=== PATIENT | female | born 1975 | race Caucasian/White ===

== ENCOUNTER 2016-10-18 21:51 | Inpatient (IN) | payer MEDICARE, OTHER ==
--- NOTE | ~2016-10-18 | HP ---
Unit #: [id number] #: [id number] Patient: HOWARD SMITH [id number] [address] [address] [id number] I MR#: [id number] NAME: HOWARD SMITH ROOM: [facility] Age: 41 Sex: F Admission Date: 10/18/2016 : 1975 Attending Physician: Dione Lee M.D. Primary Care Physician: No Primary Care Physician HISTORY AND PHYSICAL CHIEF COMPLAINT Cardiopulmonary arrest. DISCUSSION This is a 41-year-old female who has a past medical history significant for history of anxiety, depression, bipolar, chronic back pain, degenerative disk disease, history of opiate abuse. She was brought by EMS to the ER after cardiopulmonary arrest. As per EMS history, she went to [facility] with friend, and the friend brought her back from [facility] and left in the car. EMS was called. She was found to be unresponsive, and she was coded twice by EMS, intubated. She was brought to the emergency room and eventually one time coded in the emergency room. Then, she regained a pulse, but her pupils are totally dilated, unresponsive, no reflexes. She had a CT scan, which shows diffuse anoxic brain injury. PAST MEDICAL HISTORY 1. History of chronic back pain/chronic opiate abuse. 2. History of anxiety and depression/bipolar. 3. Tobacco abuse. PAST SURGICAL HISTORY 1. History of . 2. Ovarian cyst removal. 3. History of neck surgery. 4. Appendectomy. 5. Hysterectomy. 6. Left ovarian surgery. SOCIAL HISTORY She used to smoke. She has history of opiate use. FAMILY HISTORY Nothing significant. ALLERGIES No known drug allergies. MEDICATIONS Does not know medications at this time. PHYSICAL EXAMINATION GENERAL: Middle-aged female currently on the vent. CURRENT VITALS: Temperature is 92, heart rate 73, respirations 16, blood pressure 92/71. Unit #: [id number] #: [id number] Patient: HOWARD SMITH HEENT: Pupils are fully dilated, nonreactive. NECK: Supple. No JVD. LUNGS: Lungs are clear to auscultation. No rhonchi. No wheezing. HEART: S1, S2. Regular rate and rhythm. ABDOMEN: Abdomen is soft. EXTREMITIES: Inspection is normal. No cyanosis. No clubbing. No edema. DIAGNOSTIC STUDIES LABORATORY WORKUP: Urine toxicology positive for opiates. UA is clear. Chemistry - Sodium 137, potassium 7.3, chloride 101, glucose 468, BUN 9, creatinine 1.4. Salicylate 9, acetaminophen less than 10. CBC - White count 20, hemoglobin 13, hematocrit 42, platelets 206. INR is 1.2. IMAGING: Chest x-ray - Patchy diffuse bilateral opacities. CT "chest" shows diffuse cerebral edema. ASSESSMENT AND PLAN 1. Cardiopulmonary arrest. 2. Diffuse anoxic brain injury. 3. Hyperglycemia. 4. Hypokalemia. 5. History of bipolar, anxiety. 6. Chronic back pain/degenerative disk disease. 7. Tobacco abuse. 8. Opiate abuse. The patient has a very poor prognosis with anoxic brain injury. We did discuss with the family available at the bedside. Her mother and brother are available. They want to keep the patient, at this time, full code. They want to get some time so family can see her. Her brother lives out of the city, and her kids are not here so far. At this time the family plans to keep her full code, but prognosis seems to be very poor. Will keep the patient NPO, vent management per Dr. Estes, and start empirically IV Zosyn, vancomycin, Protonix IV and IV fluids. Dictated by John Dumont/thomas TD: 10/19/2016 08:54 JOB #: [id number] HISTORY AND PHYSICAL Page 1 of 1 X X HISTORY AND PHYSICAL
--- NOTE | ~2016-10-18 | CR72 ---
[facility] A Service of [facility] RADIOLOGY TEXT RESULTS PATIENT: HOWARD SMITH [facility] [birth year] UNIT #: [id number] AGE: [address]: Dione Lee MD SEX: F ORDER DR: [id number] [facility] [address] [facility]. [place], [place] [address] [id number] I MR#: [id number] Acc #: [id number] NAME: HOWARD SMITH : 1975 SEX: F STUDY DATE/TIME: 10/18/2016 22:33 UNIT: [facility] ROOM: [facility] STUDY DESCRIPTION: CR Chest Single View Portable Attending Physician: Dione Lee M.D. Ordering Physician: Andrés Bowen M.D. Primary Care Physician: No Primary Care Physician MEDICAL IMAGING REPORT This report is preliminary unless electronic signature is present EXAM Portable chest, 10/18/2016. HISTORY 41-year-old female with shortness of air beginning today. Cardiac arrest today. COMPARISON Chest, 04/25/2013. FINDINGS Frontal chest demonstrates an endotracheal tube with tip projecting approximately 1 cm above the jackie. Consider retraction approximately 2 cm. There are patchy interstitial opacities throughout both lungs which may suggest edema. There is mild cardiomegaly and mild central vascular congestion. Mediastinum unremarkable. No pleural effusion or pneumothorax. IMPRESSION 1. Endotracheal tube tip projects approximately 1 cm above the jackie. Consider retraction approximately 2 cm. 2. Patchy diffuse bilateral interstitial opacities which may suggest pulmonary edema. Mild cardiomegaly and central vascular congestion. Dictated by... Heraclio Johnson M.D. THIS IS AN ELECTRONICALLY VERIFIED REPORT Heraclio Johnson M.D. at 10/20/2016 4:42 PM AYLA/phil [facility] A Service of [facility] RADIOLOGY TEXT RESULTS PATIENT: HOWARD SMITH [facility] [birth year] UNIT #: [id number] AGE: [address]: Dione Lee MD SEX: F ORDER DR: TD: 10/19/2016 16:23 JOB #: [id number] MEDICAL IMAGING REPORT Page 1 of 1 COPY
--- NOTE | ~2016-10-18 | EKG ---
PATIENT: HOWARD SMITH UNIT #: [id number] Ventricular Rate: 86 BPM Atrial Rate: 86 BPM P-R Interval: 224 ms QRS Duration: 154 ms Q-T Interval: 448 ms QTC Calculation(Bezet): 536 ms P [place]: -61 degrees Calculated R [place]: 101 degrees Calculated T [place]: 27 degrees Diagnosis Line: Sinus tachycardia Diagnosis Line: Rightward axis Diagnosis Line: Non-specific intra-ventricular conduction block Diagnosis Line: Abnormal ECG Diagnosis Line: When compared with ECG of 25-APR-2013 05:32, Diagnosis Line: Ectopic atrial rhythm has replaced Sinus rhythm Diagnosis Line: QRS duration has increased Diagnosis Line: QT has lengthened Diagnosis Line: Confirmed by LOREN LOMELI MD ([id number]) on 10/21/2016 Diagnosis Line: 10:56:08 PM INTERPRETING MD: ARMANI RAMIREZ
--- NOTE | ~2016-10-18 | CO ---
Unit #: [id number] #: [id number] Patient: HOWARD SMITH 115247 [facility] [address] [facility]. [place], [place] [address] [id number] I MR#: [id number] NAME: HOWARD SMITH ROOM: [facility] Age: 41 Sex: F Admission Date: 10/18/2016 : 1975 Attending Physician: Dione Lee M.D. Consultation Date: 10/19/2016 CONSULTATION REPORT REASON FOR CONSULTATION Neurological evaluation, status post cardiopulmonary arrest. PATIENT IDENTIFICATION This is a 41-year-old, right-handed, white female, who was evaluated in room ICU bed 8 at [facility]. SOURCE OF INFORMATION The medical records and I got some information from her mother. There were no witnesses of this event. PROBLEMS 1. History of chronic back pain and chronic opioid abuse. 2. History of anxiety and depression and bipolar. 3. Tobacco abuse. 4. I have been told that she may have had a suicide attempt or ideation in the past. 5. History of . 6. Ovarian cyst removal. 7. History of neck surgery. 8. History of appendectomy. 9. History of hysterectomy. 10. History of left ovarian surgery. HISTORY OF PRESENT ILLNESS This is a 41-year-old female, who was actually found unresponsive in a car, I believe outside some friend or somebody's house. As per her history, she has moved back with her mother and she left about 2 days ago with a friend and she did not hear from her until she got the phone call from the hospital that she has presented here just close to 10:00 p.m. yesterday. Apparently, somebody drove her to [employer] and they got some food and then they brought her back and left her in a car and that is where she was found. EMS found her pulseless and unresponsive. She was coded twice and intubated. She was hypothermic. Pupils have been fixed since being admitted. She seemed to have hypoxic and anoxic damage. Her head CT shows very profound cerebral edema and loss of stanley white. LFTs looked bad. She is on pressors. Blood pressure the last time I look were in the 30s and teens. She is not moving and there were no corneals. No doll's eyes. There were no responses, not even a myoclonic type activity. Her temperature has been in the 92s and she is on warming blanket. No purposeful movement. No myoclonus. No activity. No history of seizures. Unit #: [id number] #: [id number] Patient: HOWARD SMITH Nothing suggesting major stroke or ICU NURSE infection. Total downtime is not known, but the concern is that the damage may have happened. There is a concern about opioid overdose and they were concerned that there were straws around her. Urine drug screen is positive for opioid. I am not sure what medication she is taking. Her daughter and her ex- was there and they did inform me that the patient had problems with addiction and opioid use. PAST MEDICAL HISTORY As discussed above. PAST SURGICAL HISTORY As discussed above. ALLERGIES None. HOME MEDICATIONS Not known. FAMILY HISTORY Nothing suggesting neurologic issues pertaining to this. No seizures. No migraines. No strokes. SOCIAL HISTORY She apparently is . She used to smoke. She has history of opioid use. Alcohol abuse is not known. REVIEW OF SYSTEMS Could not be obtained. The patient is essentially in coma. PHYSICAL EXAMINATION VITAL SIGNS: Temperature 92.1, pulse is 120, respirations 24, blood pressure is 76/53 recorded, but I saw much lower numbers than that, O2 saturations were 100%. She is not overbreathing the vent. Her weight is 189 pounds, temperature has had dropped as low as 90.1, the max temperature was 92.9. NEUROLOGIC: The patient is essentially in coma. She has Juan Antonio Coma Scale of 2T. No responses whatsoever. Cranial nerve examination demonstrates no corneals, no doll's eyes. Pupil fully blown and nonreactive and I did not see any facial asymmetry. Muscles of mastication could not be checked. Hearing is questionable. Tongue was midline. I could not visualize her oropharynx or uvula. Motor examination, no responses. Sensory examination, no responses. I could not get any reflexes. Toes are mute. DIAGNOSTIC STUDIES Unit #: [id number] #: [id number] Patient: HOWARD SMITH LABORATORY RESULTS: When she came in, her pH was 6.9; pCO2 was 63; pO2 was 270 plus, I believe she was bagged, pO2 has been as low as 62.3. Other labs showed random glucose of 468 when she came in, 243 the last one; her potassium was 7.3 when she came in, it is 2.5 right now; her AST is 2151; ALT is 2776. INR 1.2, PTT was 71.7. White count was 20.3, it is 38.5; H and H was 13.0 and 42.7, it is 16.2 and 51.1; platelet count is 206. Urine drug screen positive for opioids. IMAGING STUDIES: CT head reviewed. IMPRESSION This is a very significantly serious and unfortunate situation with this 41-year-old, likely hypoxic and ischemic damage. Clinically, she is not doing anything. I have had very very detailed discussion to the family and we even discussed studies to confirm her condition because clinically she looks like she is brain , but first of all, she had opioid overdose, so I will give her sometime and secondly the family is not ready to make that decision anyway, so the testing would not change the course because they want to wait. I am very considering her perfusion pressures are not helping and her damage is too much. I reviewed the CT and it is very negative prognostic sign. They have made her DNR. We will give her time and continue airway breathing and circulation support. There is nothing suggesting active seizures. This is very very poor prognostic picture. If she makes 72 hours, then we will discuss future course of action, but I have my doubts clinically. I will follow her as needed and call me if any questions, issue, or concerns. Dictated by... John Sinclair/nava TD: 10/20/2016 02:32 JOB #: [id number] CONSULTATION REPORT Page 1 of 1 X Ran Brown MD X CONSULTATION REPORT
--- NOTE | ~2016-10-18 | DS ---
Unit #: [id number] #: [id number] Patient: HOWARD SMITH [id number] [address] [address] [id number] I MR#: [id number] NAME: HOWARD SMITH ROOM: [facility] Age: 41 Sex: F Admission Date: 10/18/2016 : 1975 Discharge Date: 10/19/2016 Attending Physician: Dione Lee M.D. Primary Care Physician: Trina Primary Care Physician DISCHARGE SUMMARY SUMMARY DATE OF 10/19/2016 FINAL DIAGNOSIS Cardiopulmonary arrest secondary to a drug overdose. SECONDARY DIAGNOSES 1. Anxiety. 2. Depression. 3. Bipolar. 4. History of chronic back pain. 5. Chronic opiate abuser. HOSPITAL COURSE A 41-year-old female who was admitted after being brought to the ER by EMS after she was found to be unresponsive. She was coded by EMS, intubated and brought to the emergency room. On evaluation in the emergency room, the CT scan showed diffuse anoxic brain injury. After discussion with family, they agreed to make her a DO NOT RESUSCITATE while awaiting outcome such as Neurology input. The patient eventually succumbed. Dictated by... John Tran/brook TD: 10/20/2016 14:01 JOB #: [id number] DISCHARGE SUMMARY Page 1 of 1 X Dione Lee MD X DISCHARGE SUMMARY
--- NOTE | ~2016-10-18 | CT71 ---
[facility] A Service [facility] RADIOLOGY TEXT RESULTS PATIENT: HOWARD SMITH LOCATION: [place] [id number] : [birth year] UNIT #: [id number] AGE: [address]: Dione Lee MD SEX: F ORDER DR: [id number] [facility] [address] [facility]. [place], [place] [address] [id number] I MR#: [id number] #: [id number] NAME: HOWARD SMITH : 1975 SEX: F STUDY DATE/TIME: 10/18/2016 22:46 UNIT: [facility] ROOM: [facility] STUDY DESCRIPTION: CT Head Wo Contrast Attending Physician: Dione Lee M.D. Ordering Physician: Andrés Bowen M.D. Primary Care Physician: Primary Care Physician No MEDICAL IMAGING REPORT This report is preliminary unless electronic signature is present EXAM CT head without contrast, 10/18/2016 HISTORY 41-year-old female with cardiac arrest today. Altered mental status today. Found unresponsive in car. COMPARISON CT head, 11/07/2010 TECHNIQUE Routine unenhanced axial images performed through the brain. This CT exam was performed with one or more of the following radiation dose reduction techniques: automatic exposure control, adjustment of mA and/or kV according to patient size, and iterative reconstruction. FINDINGS There is diffuse edema noted throughout the brain with slit-like ventricles and loss of the stanley-white differentiation. Findings consistent with diffuse anoxic brain injury. No acute hemorrhage or extraaxial fluid collection. No mass lesion. No acute bony abnormality. Mucosal thickening in bilateral ethmoid air cells and sphenoid sinuses. Partial fluid opacification of bilateral mastoid air cells. IMPRESSION 1. Diffuse cerebral edema with loss of stanley-white differentiation throughout, most suggestive of a diffuse anoxic brain injury. No evidence of acute hemorrhage or abnormal extraaxial fluid collection. 2. Partial fluid opacification of bilateral mastoid air cells with mucosal thickening in the bilateral ethmoid air cells and sphenoid sinuses. [facility] A Service [facility] RADIOLOGY TEXT RESULTS PATIENT: HOWARD SMITH LOCATION: [address] : [birth year] UNIT #: [id number] AGE: [address]: Dione Lee MD SEX: F ORDER DR: Dictated by... Heraclio Johnson M.D. THIS IS AN ELECTRONICALLY VERIFIED REPORT Heraclio Johnson M.D. at 10/20/2016 4:42 PM AYLA/misa TD: 10/19/2016 16:18 JOB #: [id number] MEDICAL IMAGING REPORT Page 1 of 1 COPY
--- NOTE | ~2016-10-18 | CO ---
Unit #: [id number] #: [id number] Patient: HOWARD SMITH [id number] [address] [place], [place] [address] [id number] I MR#: [id number] NAME: HOWARD SMITH ROOM: [facility] Age: 41 Sex: F Admission Date: 10/19/2016 : 1975 Attending Physician: Dione Lee M.D. Primary Care Physician: No Primary Care Physician CONSULTATION REPORT REASON FOR CONSULTATION Critical care management. CHIEF COMPLAINT Cardiopulmonary arrest. HISTORY OF PRESENT ILLNESS Patient basically was brought by EMS. She has a previous history of opiate abuse and was not feeling well. Was found unresponsive and brought to the emergency room by EMS, was intubated and resuscitated. Currently is on a ventilator and is not breathing over the ventilator and unresponsive, on multiple pressors. According to the history, the patient went to [facility] with a friend, and friend brought her back from [facility] and left in the car. EMS was called and was found unresponsive and was coded by the EMS. Her CT head has shown diffuse anoxic brain injury. REVIEW OF SYSTEMS Unobtainable. PAST MEDICAL HISTORY Past medical history is significant for chronic back pain, opiate abuse, anxiety and depression, bipolar disorder and tobacco use. PAST SURGICAL HISTORY , ovarian cyst removal, history of neck surgery, appendectomy, hysterectomy, left ovarian surgery. SOCIAL HISTORY Patient is a smoker. History of opiate use. FAMILY HISTORY None, as per records. ALLERGIES No known drug allergies. PHYSICAL EXAMINATION GENERAL: Currently unresponsive on the ventilator. VITAL SIGNS: Temperature 92, pulse 110, respirations 24, blood pressure 95/73. CVS: S1, S2. RESPIRATORY: Bilateral rhonchi. Unit #: [id number] #: [id number] Patient: HOWARD SMITH GI: Nontender. Soft. Bowel sounds positive. EXTREMITIES: Positive edema. SKIN: No rashes, no ulcer. LYMPHATIC: No lymphadenopathy. DIAGNOSTIC STUDIES LABS: Creatinine is 1.2, potassium 7.4, bicarb 24, AST 2,151, ALT 2,776. Her white count is 38, hemoglobin 16, hematocrit 51, platelet count 235. Drug screen is positive for opiates. ASSESSMENT 1. Altered mental status. 2. Drug overdose. 3. Diffuse anoxic brain injury. 4. Cardiopulmonary arrest. 5. Hyperkalemia. 6. History of bipolar disorder. 7. Chronic back pain. 8. Critically ill patient. PLAN At this point the plan is to continue ventilator support. Continue the patient on IV pressors. GI and DVT prophylaxis. IV antibiotic has been started. Treat hyperkalemia. Repeat the patient's potassium level. Continue current treatment. Please see orders for detailed plan. The patient is a DNR. Explained to the family. NOTE: Total critical care time is 75 minutes in direct critical care of this patient. Prognosis is very poor. Dictated by... John Trammell TD: 10/19/2016 11:24 JOB #: [id number] CONSULTATION REPORT Page 1 of 1 X Colby Estes MD X CONSULTATION REPORT
[~2016-10-18 21:51] MED LIST: ACETAMINOPHEN PO; ALPRAZOLAM PO; ATARAX PO; ATIVAN PO; CIPRO PO; DURAGESIC TOP; EFFEXOR XR PO; IBUPROFEN PO; LORTAB 7.5-5001 TAB PO; LYRICA PO; NEURONTIN PO; OPANA ER40 MG PO; OXYCONTIN PO; ROXICODONE15 MG PO; SEROQUEL PO; TORADOL10 MG PO; TYLOX 5/500 CAP1 CAP PO; ZITHROMAX PO
[2016-10-18 21:58] LABS: BASOPHIL# 0.1 X10e3 (0-0.3); BASOPHIL% 0.3 % (0-2.5); EOSINOPHIL# 0.3 X10e3 (0-0.7); EOSINOPHIL% 1.3 % (0.0-7.0); HEMATOCRIT 42.7 % (35.0-45.0); LYMPHOCYTE# 11.4 X10e3 (1.0-3.5); MEAN CELL VOLUME 105.4 FL (83-96); MEAN CORPUSCULAR HGB CONC 30.4 g/dL (30-36); MEAN PLATELET VOLUME 8.4 FL (6.5-11.5); MONOCYTE# 0.7 X10e3 (0-1.0); MONOCYTE% 3.4 % (3.0-12.0); NEUTROPHIL# 7.9 X10e3 (1.5-7.1); PLATELET COUNT 206 X10e3 (140-420); RED BLOOD COUNT 4.05 X10e (3.90-5.30); RED CELL DISTRIBUTION WIDTH 13.7 % (11.0-15.5); WHITE BLOOD COUNT 20.3 X10e3 (4.0-10.5)
[2016-10-18 21:59] LABS: DIFF IND YES
[2016-10-18 22:12] LABS: INR 1.2; PARTIAL THROMBOPLASTIN TIME 71.7 SECONDS (23.5-31.3); PROTHROMBIN TIME (PATIENT) 12.2 SECONDS (9.6-11.5)
[2016-10-18 22:15] LABS: ARTERIAL BLD GAS O2 SATURATION 92.4 % (90.0-100.0); ARTERIAL BLOOD GAS CARBOXY HB 5.7 %sat (0.0-9.0); ARTERIAL BLOOD GAS HCO3 13.5 mmol/L
[2016-10-18 22:16] LABS: ARTERIAL BLOOD GAS ALLEN TEST NORMAL; ARTERIAL BLOOD GAS ART SITE RIGHT RADIAL; ARTERIAL BLOOD GAS DELIVERY VENT; ARTERIAL BLOOD GAS PCO2 63.1 mmHg (35.0-45.0); ARTERIAL BLOOD GAS VENT MODE A/C; ARTERIAL DRAW? YES
[2016-10-18 22:27] LABS: NUCLEATED RED BLOOD CELL 3 /100 (0)
[2016-10-18 22:28] LABS: ANISOCYTOSIS SL; PLATELET ESTIMATE NORMAL (NORMAL); POIKILOCYTOSIS SL; POLYCHROMASIA SL
[2016-10-18 22:33] LABS: ALBUMIN SERUM 3.1 g/dL (3.5-5.0); ALCOHOL BLOOD 9 mg/dL (0); AST (SGOT) 2151 U/L (10-42); BILIRUBIN, DIRECT 0.1 mg/dL (0.0-0.2); BILIRUBIN,INDIRECT 0.3 mg/dL (0.0-0.9); BILIRUBIN,TOTAL 0.4 mg/dL (0.2-2.0); BLOOD UREA NITROGEN 9 mg/dL (9-23); BUN/CREATININE RATIO 6.42; CALCIUM SERUM 9.1 mg/dL (8.4-10.2); CARBON DIOXIDE 15 mmol/L (22-31); CHLORIDE 101 mmol/L (100-111); CREATININE SERUM 1.4 mg/dL (0.6-1.4); GLOM FILT RATE Estimated 46.2 mL/min (>60); GLUCOSE FASTING 468 mg/dL (70-110); PROTEIN TOTAL SERUM 5.9 g/dL (6.0-8.3); SODIUM 139 mmol/L (135-145)
[2016-10-18 22:35] LABS: ACETAMINOPHEN <10 ug/mL; POTASSIUM 7.3 mmol/L (3.5-5.1)
[2016-10-18 22:46] LABS: ALKALINE PHOSPHATASE 67 U/L (32-92); ALT (SGPT) 2776 U/L (10-40)
[2016-10-18 23:14] LABS: URINE SOURCE CLEAN CATCH
[2016-10-18 23:22] LABS: URINE APPEARANCE CLEAR; URINE BILIRUBIN NEG (NEG); URINE BLOOD NEG (NEG); URINE COLOR YELLOW; URINE GLUCOSE NEG (NEG); URINE KETONE NEG (NEG); URINE LEUKOCYTE ESTERASE NEG (NEG); URINE NITRATE NEG (NEG); URINE PROTEIN NEG (NEG); URINE SPECIFIC GRAVITY 1.002 (1.003-1.035); URINE UROBILINOGEN 0.2 MG/DL (NEG)
[2016-10-18 23:26] LABS: CULTURE INDICATED? NO
[2016-10-18 23:33] LABS: AMPHETAMINE NEG (NEG); BARBITURATES NEG (NEG); BENZODIAZEPINES NEG (NEG); COCAINE NEG (NEG); MARIJUANA NEG (NEG); OPIATES POS (NEG); TRICYCLIC ANTIDEPRESSANTS NEG (NEG); U METHADONE NEG (NEG)
[2016-10-19 02:03] LABS: BASOPHIL# 0.5 X10e3 (0-0.3); BASOPHIL% 1.4 % (0-2.5); DIFF IND NO; EOSINOPHIL# 0.6 X10e3 (0-0.7); EOSINOPHIL% 1.7 % (0.0-7.0); HEMATOCRIT 51.1 % (35.0-45.0); HEMOGLOBIN 16.2 gm/dL (12.0-16.0); LYMPHOCYTE# 10.2 X10e3 (1.0-3.5); LYMPHOCYTE% 26.4 % (17.0-45.0); MEAN CELL VOLUME 98.7 FL (83-96); MEAN CORPUSCULAR HEMOGLOBIN 31.4 PG (28-34); MEAN CORPUSCULAR HGB CONC 31.8 g/dL (30-36); MEAN PLATELET VOLUME 8.5 FL (6.5-11.5); MONOCYTE# 0.4 X10e3 (0-1.0); MONOCYTE% 1.1 % (3.0-12.0); NEUTROPHIL# 26.8 X10e3 (1.5-7.1); NEUTROPHIL% 69.4 % (40-75); PLATELET COUNT 235 X10e3 (140-420); RED BLOOD COUNT 5.18 X10e (3.90-5.30); WHITE BLOOD COUNT 38.5 X10e3 (4.0-10.5)
[2016-10-19 02:19] LABS: BUN/CREATININE RATIO 8.33; CALCIUM SERUM 9.8 mg/dL (8.4-10.2); CREATININE SERUM 1.2 mg/dL (0.6-1.4); GLOM FILT RATE Estimated 55.7 mL/min (>60)
[2016-10-19 02:21] LABS: POTASSIUM 7.4 mmol/L (3.5-5.1)
[2016-10-19 03:58] LABS: ARTERIAL BLOOD GAS pH 7.108 (7.350-7.450)
[2016-10-19 03:59] LABS: ARTERIAL BLD GAS O2 SATURATION 79.2 % (90.0-100.0); ARTERIAL BLOOD GAS ALLEN TEST NORMAL; ARTERIAL BLOOD GAS ART SITE RIGHT RADIAL; ARTERIAL BLOOD GAS CARBOXY HB 2.2 %sat (0.0-9.0); ARTERIAL BLOOD GAS DELIVERY VENT; ARTERIAL BLOOD GAS HCO3 22.1 mmol/L; ARTERIAL BLOOD GAS MET HB 0.8 %sat (0.0-2.0); ARTERIAL BLOOD GAS PO2 62.3 mmHg (80.0-100); ARTERIAL BLOOD GAS VENT MODE A/C; ARTERIAL DRAW? YES
[2016-10-19 07:35] LABS: ARTERIAL BLD GAS O2 SATURATION 96.5 % (90.0-100.0); ARTERIAL BLOOD GAS CARBOXY HB 0.5 %sat (0.0-9.0); ARTERIAL BLOOD GAS HCO3 13.5 mmol/L; ARTERIAL BLOOD GAS MET HB 0.7 %sat (0.0-2.0); ARTERIAL BLOOD GAS PCO2 34.6 mmHg (35.0-45.0)
[2016-10-19 07:36] LABS: ARTERIAL BLOOD GAS pH 7.199 (7.350-7.450)
[2016-10-19 07:37] LABS: ARTERIAL BLOOD GAS ART SITE RIGHT BRACHIAL; ARTERIAL BLOOD GAS DELIVERY VENT; ARTERIAL BLOOD GAS VENT MODE AC; ARTERIAL DRAW? YES
== END 2016-10-19 22:54 | disposition expired | DRG 917 ==
LOC: CED 21:51 → CEDOF 23:55 → CICCU2 10-19 08:20
PROVIDERS: Emergency Medicine; Internal Medicine
PROC: 5A1945Z Respiratory Ventilation, 24-96 Consecutive Hours (ICD-10-PCS; principal; 2016-10-18)
DX: T40.601A Poisoning by unspecified narcotics, accidental (unintentional), initial encounter (principal); G93.6 Cerebral edema; I46.9 Cardiac arrest, cause unspecified; G93.1 Anoxic brain damage, not elsewhere classified; F41.9 Anxiety disorder, unspecified; F17.210 Nicotine dependence, cigarettes, uncomplicated; F31.9 Bipolar disorder, unspecified; Z90.710 Acquired absence of both cervix and uterus; F11.10 Opioid abuse, uncomplicated; R73.9 Hyperglycemia, unspecified; E87.6 Hypokalemia; E87.5 Hyperkalemia; G89.29 Other chronic pain; M54.9 Dorsalgia, unspecified
CPT/HCPCS: 36415; 36600; 70450; 71010; 80048; 80076; 80307; 81003; 82803; 82947; 83880; 84132; 85025; 85610; 85730; 93005; 94002; 94003; 94640; 94760; 96374; 96375; 99291; C9113; G0480; J0171; J1265; J2370; J2543; J3370; J7060